=== PATIENT | male | born 1995 | race Caucasian/White ===

== ENCOUNTER 2020-10-20 14:59 | Emergency (ER) | payer BC ==
[2020-10-20 15:36] LABS: HEMOGLOBIN 16.8 gm/dl (14.0-17.5); RED BLOOD COUNT 5.42 M/UL (4.20-5.50); WHITE BLOOD COUNT 4.2 K/UL (4.5-11.0)
[2020-10-20 16:38] LABS: BUN/CREATININE RATIO 14 (0-10)
== END 2020-10-21 01:26 | disposition home or self-care (01) ==
LOC: ER1 14:59
PROVIDERS: Physician Assistant
DX: R07.89 Other chest pain (principal); R06.02 Shortness of breath; F17.290 Nicotine dependence, other tobacco product, uncomplicated
CPT/HCPCS: 71045; 80053; 82550; 82553; 83605; 83874; 84484; 85025; 93005; 99285

== ENCOUNTER 2021-02-11 12:24 | Emergency (ER) | payer BC ==
[2021-02-11] MEDS ORDERED: IBUPROFEN600 MG PO (14:05)
== END 2021-02-11 15:21 | disposition home or self-care (01) ==
LOC: ER1 12:24
DX: S43.402A Unspecified sprain of left shoulder joint, initial encounter (principal); X58.XXXA Exposure to other specified factors, initial encounter
CPT/HCPCS: 73030; 99283

== ENCOUNTER 2021-08-17 07:01 | Emergency (ER) | payer BC ==
[~2021-08-17 07:01] MED LIST: IBUPROFEN600 MG PO
[2021-08-17] MEDS ORDERED: MEDROL DOSEPAK 24 MG PO (09:04)
[2021-08-17] MEDS ORDERED: NORFLEX 100 MG100 MG PO (09:04)
[2021-08-17] MEDS ORDERED: Voltaren Gel 1 % TOP (09:04)
== END 2021-08-17 09:20 | disposition home or self-care (01) ==
LOC: ER1 07:01
DX: M54.50 Low back pain, unspecified (principal)
CPT/HCPCS: 72100; 99283